=== PATIENT | female | born 1965 | race Hispanic/Latino ===

== ENCOUNTER 2017-09-23 01:57 | Emergency (ER) | payer OTHER ==
[2017-09-23 02:49] LABS: Absolute Lymphocytes (CBC) 3.2 K/uL (0.7-4.9); Absolute Monocytes 0.4 K/uL (0.1-1.3); Absolute Neutrophil 3.9 K/uL (1.8-8.0); Basophils % 1.1 % (0-1.3); Eosinophils % 2.3 % (0-4.4); Hematocrit 43.9 % (36.0-45.0); Lymphocytes % 41.3 % (15.3-44.8); MCH 29.8 pg (27.0-35.0); MCV 89.8 fL (80-100); MPV 10.4 fL (7.6-11.3); Monocytes % 5.1 % (3.3-12.3); RBC Red Blood Cell Count 4.89 M/uL (3.86-4.86)
[2017-09-23 02:54] LABS: Bicarbonate 26 mEq/L (21-31); Glucose Level 107 mg/dL (65-120); Lipase 32 U/L (22-51); Potassium 3.4 mEq/L (3.6-5.0); Sodium Level 136 mEq/L (135-145)
[2017-09-23 02:57] LABS: ALT/SGPT 12 IU/L (10-60); AST/SGOT 19 IU/L (10-42); Albumin 4.6 g/dL (3.2-5.5); Alkaline Phosphatase 58 IU/L (42-121); BUN Blood Urea Nitrogen 11 mg/dL (6-20); Bilirubin Total 0.7 mg/dL (0.3-1.2)
[2017-09-23 03:27] LABS: Barbiturates NEGATIVE; Benzodiazepines NEGATIVE; Cocaine NEGATIVE; METHAMPHETAM NEGATIVE; Opiates NEGATIVE; Phencyclidine NEGATIVE; THC Cannibis NEGATIVE
--- NOTE | 2017-09-23 04:15 | EDPHYS ---
Physician Documentation [facility] Name: Tejal Tabares Age: 52 yrs Sex: Female : 1965 Arrival Date: 09/23/2017 Time: 02:02 Bed 20 Private MD: ED Physician Carlos Castaneda HPI: 09/23 02:07 This 52 yrs old Female presents to ER via Unassigned with complaints of ps1 seizure. 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 EMS called and patient ps1 had stopped seizure like activity that was reported as generalized shaking and drooling per family member. EMS states that she appeared post ictal. No medications given. Hx of MS. Not taking medications. Is taking alternative medications, colloidal silver and stool softener. . 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 - Social history:: Smoking status: Patient/guardian denies using tobacco. Vital Signs: 02:19 BP 131 / 58; Pulse 93; Resp 20 S; Temp 98.8(O); Pulse Ox 100% on R/A; Weight 88.45 kg jd3 (R); Height 5 ft. 4 in. (162.56 cm) (R); Pain 0/10; 03:18 BP 186 / 87; Pulse 78; Resp 18 S; Pulse Ox 100% on R/A; Pain 0/10; jd3 03:34 BP 169 / 83; Pulse 89; Resp 18 S; Pulse Ox 100% on R/A; Pain 0/10; jd3 05:10 BP 173 / 91; Pulse 100; Resp 19 S; Pulse Ox 100% on R/A; Pain 0/10; jd3 06:08 BP 155 / 84; Pulse 78; Resp 18 S; Pulse Ox 98% on R/A; jd3 06:42 BP 153 / 79; Pulse 88; Resp 17 S; Pulse Ox 100% on R/A; jd3 07:30 BP 144 / 79; Pulse 68; Resp 16; Pulse Ox 100% on R/A; Pain 0/10; em 02:19 Body Mass Index 33.47 (88.45 kg, 162.56 cm) jd3 MDM: 02:23 Patient medically screened. ps1 09/23 02:09 Order name: UDS; Complete Time: 03:27 ps1 09/23 02:09 Order name: BNP; Complete Time: 03:03 ps1 09/23 02:09 Order name: CBC with Diff; Complete Time: 03:03 ps1 09/23 02:09 Order name: Lipase; Complete Time: 03:03 ps1 09/23 02:09 Order name: Magnesium; Complete Time: 03:03 ps1 09/23 02:09 Order name: Troponin (emerg Dept Use Only); Complete Time: 03:03 ps1 09/23 02:09 Order name: CT Head Brain wo Cont ps1 09/23 02:09 Order name: Lactate; Complete Time: 03:27 ps1 09/23 02:09 Order name: CMP; Complete Time: 03:03 ps1 09/23 02:14 Order name: Blood Culture Adult (2) ps1 09/23 02:18 Order name: CXR XRAY ps1 09/23 03:26 Order name: Urine Dipstick--Ancillary (enter results); Complete Time: 05:14 rg2 09/23 05:47 Order name: Urine Microscopic Only ps1 09/23 07:19 Order name: Urine Culture EDMS 09/23 02:09 Order name: EKG; Complete Time: 02:10 ps1 09/23 02:09 Order name: Cardiac monitoring; Complete Time: 02:21 ps1 09/23 02:09 Order name: EKG - Nurse/Tech; Complete Time: 03:04 ps1 09/23 02:09 Order name: IV Saline Lock; Complete Time: 03:04 ps1 09/23 02:09 Order name: Labs collected and sent; Complete Time: 03:04 ps1 09/23 02:09 Order name: NPO; Complete Time: 02:21 ps1 09/23 02:09 Order name: O2 Per Protocol; Complete Time: 02:21 ps1 09/23 02:09 Order name: O2 Sat Monitoring; Complete Time: 02:21 ps1 09/23 02:09 Order name: Urine Dipstick-Ancillary (obtain specimen); Complete Time: 03:04 ps1 09/23 02:10 Order name: Seizure Precautions; Complete Time: 02:21 ps1 Administered Medications: 05:20 Drug: Keppra 1500 mg Route: IV; Rate: bolus; Site: left antecubital; jd3 06:10 Follow up: Response: No adverse reaction; IV Status: Completed infusion jd3 Disposition: 09/23/17 07:19 Discharged to Home. Impression: Seizure like activity, UTI. - Condition is Stable. - Discharge Instructions: Seizure, Adult. - Prescriptions for Keppra 500 mg Oral Tablet - take 1 tablet by ORAL route every 12 hours; 20 tablet. Bactrim DS 800- 160 mg Oral Tablet - take 1 tablet by ORAL route every 12 hours for 3 days; 6 tablet. - Medication Reconciliation Form, Thank You Letter, Antibiotic Education, Prescription Opioid Use form. - Follow up: Carlos Marte MD; When: 2 - 3 days; Reason: Further diagnostic work-up, Recheck today's complaints, Re-evaluation by your physician. Follow up: Emergency Department; When: As needed; Reason: Worsening of condition. - Problem is new. - Symptoms are unchanged. Addendum: 09/29/2017 13:32 Co-signature as Attending Physician, Arthur Brooks MD I agree with the assessment and k dr plan of care. Signatures: Dispatcher [employer] EDIA Arthur Brooks MD MD [facility] Deep Oneal LVN LVN Forrest Logan RN RN jCarlos Nguyen MD MD ps1 Corrections: (The following items were deleted from the chart) 09/23 03:04 02:09 Urine Test ordered. ps1 jd3 07:18 04:15 09/23/2017 04:15 Discharged to Home. Impression: Acute Chron's Flare. Condition ps1 is Stable. Forms are Medication Reconciliation Form, Thank You Letter, Antibiotic Education, Prescription Opioid Use. Follow up: Jian Upton; When: 2 - 3 days; Reason: Recheck today's complaints, Continuance of care, Re-evaluation by your physician. Follow up: Emergency Department; When: As needed; Reason: Fever > 102 F, Worsening of condition. Problem is an acute exacerbation. Symptoms have worsened. ps1 07:24 07:19 09/23/2017 07:19 Discharged to Home. Impression: Seizure like activity. Condition ps1 is Stable. Forms are Medication Reconciliation Form, Thank You Letter, Antibiotic Education, Prescription Opioid Use. Follow up: Carlos Marte; When: 2 - 3 days; Reason: Further diagnostic work-up, Recheck today's complaints, Re-evaluation by your physician. Follow up: Emergency Department; When: As needed; Reason: Worsening of condition. Problem is new. Symptoms are unchanged. ps1 08:13 07:24 09/23/2017 07:19 Discharged to Home. Impression: Seizure like activity; UTI. em Condition is Stable. Discharge Instructions: Seizure, Adult. Prescriptions for Keppra 500 mg Oral Tablet - take 1 tablet by ORAL route every 12 hours; 20 tablet. and Forms are Medication Reconciliation Form, Thank You Letter, Antibiotic Education, Prescription Opioid Use. Follow up: Carlos Marte; When: 2 - 3 days; Reason: Further diagnostic work-up, Recheck today's complaints, Re-evaluation by your physician. Follow up: Emergency Department; When: As needed; Reason: Worsening of condition. Problem is new. Symptoms are unchanged. ps1
--- NOTE | 2017-09-23 04:15 | ER ---
Nurse's Notes [facility] Name: Tejal Tabares Age: 52 yrs Sex: Female : 1965 Arrival Date: 09/23/2017 Time: 02:02 Bed 20 Private MD: Diagnosis: Seizure like activity;UTI Presentation: 09/23 02:12 Presenting complaint: EMS states: "pt was post ictal when we arrived on scene, she is jd3 now opening her eyes with purposeful movement.". Transition of care: patient was not received from another setting of care. Onset of symptoms was September 23, 2017. Initial Sepsis Screen: Does the patient meet any 2 criteria? No. Patient's initial sepsis screen is negative. Does the patient have a suspected source of infection? No. Patient's initial sepsis screen is negative. Care prior to arrival: IV initiated. 20 GA, in the right forearm, Glucose check: 99. 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 - Social history:: Smoking status: Patient/guardian denies using tobacco. Screenin:24 Abuse screen: Denies threats or abuse. Nutritional screening: No deficits noted. jd3 Tuberculosis screening: No symptoms or risk factors identified. Fall Risk Secondary diagnosis (15 points) impaired mobility, Ambulatory Aid- None/Bed Rest/Nurse Assist (0 pts). Gait- Weak (10 pts.). Total Jackman Fall Scale indicates Low Risk Score (25-44 pts). Fall prevention measures have been instituted. Side Rails Up X 2 Placed close to Nursing Station Frequent Obs/Assesments occuring Family Present and informed to notify staff if they need to leave bedside. Assessment: 02:22 General: Appears uncomfortable, Behavior is calm, cooperative, appropriate for age. jd3 Pain: Denies pain. Neuro: Level of Consciousness is awake, alert, obeys commands, Oriented to person, place, time, situation, Appropriate for age pt reacts slow, family reports this is due to history of MS. Cardiovascular: Heart tones S1 S2 present Capillary refill < 3 seconds Patient's skin is warm and dry. Respiratory: Airway is patent Respiratory effort is even, unlabored, Respiratory pattern is regular, symmetrical, Breath sounds are clear bilaterally. GI: Abdomen is round Bowel sounds present X 4 quads. Abd is soft and non tender X 4 quads. : No signs and/or symptoms were reported regarding the genitourinary system. EENT: No signs and/or symptoms were reported regarding the EENT system. Derm: Skin is intact, Skin is dry, Skin is normal, Skin temperature is warm. Musculoskeletal: Circulation, motion, and sensation intact. Range of motion: intact in all extremities. 03:16 Reassessment: Patient appears in no apparent distress at this time. Patient and/or jd3 family updated on plan of care and expected duration. Pain level reassessed. Patient is alert, oriented x 3, equal unlabored respirations, skin warm/dry/pink. 03:35 Reassessment: Patient appears in no apparent distress at this time. Patient and/or jd3 family updated on plan of care and expected duration. Pain level reassessed. Patient is alert, oriented x 3, equal unlabored respirations, skin warm/dry/pink. 04:30 Reassessment: Patient appears in no apparent distress at this time. Patient and/or jd3 family updated on plan of care and expected duration. Pain level reassessed. Patient is alert, oriented x 3, equal unlabored respirations, skin warm/dry/pink. 05:10 Reassessment: Patient appears in no apparent distress at this time. Patient and/or jd3 family updated on plan of care and expected duration. Pain level reassessed. Patient is alert, oriented x 3, equal unlabored respirations, skin warm/dry/pink. 06:09 Reassessment: Patient appears in no apparent distress at this time. Patient and/or jd3 family updated on plan of care and expected duration. Pain level reassessed. Patient is alert, oriented x 3, equal unlabored respirations, skin warm/dry/pink. 06:42 Reassessment: Patient appears in no apparent distress at this time. Patient and/or jd3 family updated on plan of care and expected duration. Pain level reassessed. Patient is alert, oriented x 3, equal unlabored respirations, skin warm/dry/pink. 07:30 Reassessment: Patient appears in no apparent distress at this time. Patient and/or em family updated on plan of care and expected duration. Pain level reassessed. Patient is alert, oriented x 3, equal unlabored respirations, skin warm/dry/pink. awaiting U. micro results, pt is pending discharge after results Patient states symptoms have improved. Vital Signs: 02:19 BP 131 / 58; Pulse 93; Resp 20 S; Temp 98.8(O); Pulse Ox 100% on R/A; Weight 88.45 kg jd3 (R); Height 5 ft. 4 in. (162.56 cm) (R); Pain 0/10; 03:18 BP 186 / 87; Pulse 78; Resp 18 S; Pulse Ox 100% on R/A; Pain 0/10; jd3 03:34 BP 169 / 83; Pulse 89; Resp 18 S; Pulse Ox 100% on R/A; Pain 0/10; jd3 05:10 BP 173 / 91; Pulse 100; Resp 19 S; Pulse Ox 100% on R/A; Pain 0/10; jd3 06:08 BP 155 / 84; Pulse 78; Resp 18 S; Pulse Ox 98% on R/A; jd3 06:42 BP 153 / 79; Pulse 88; Resp 17 S; Pulse Ox 100% on R/A; jd3 07:30 BP 144 / 79; Pulse 68; Resp 16; Pulse Ox 100% on R/A; Pain 0/10; em 02:19 Body Mass Index 33.47 (88.45 kg, 162.56 cm) jd3 ED Course: 02:02 Patient arrived in ED. rg2 02:07 Carlos Castaneda MD is Attending Physician. ps1 02:12 Forrest Paul RN is Primary Nurse. jd3 02:14 Triage completed. jd3 02:20 Arm band placed on. jd3 02:23 Radiology exam delayed due to IV insertion attempt and/or patient not having eh appropriate IV at this time. 02:26 Patient has correct armband on for positive identification. Bed in low position. Call jd3 light in reach. Side rails up X2. Adult w/ patient. 02:30 Inserted saline lock: 20 gauge in left antecubital area, using aseptic technique. Blood jd3 collected. placed by Rosa Maria ORTIZ. 02:50 X-ray completed. Portable x-ray completed in exam room. Patient tolerated procedure kc2 well. 02:52 CXR XRAY In Process Unspecified. EDMS 03:12 CT Head Brain wo Cont In Process Unspecified. EDMS 03:14 CT completed. Patient tolerated procedure well. Patient moved to CT via stretcher. Patient moved back from CT. 04:14 Jian Upton MD is Referral Physician. ps1 07:18 Carlos Marte MD is Referral Physician. ps1 08:09 No provider procedures requiring assistance completed. IV discontinued, intact, em bleeding controlled, No redness/swelling at site. Pressure dressing applied. Administered Medications: 05:20 Drug: Keppra 1500 mg Route: IV; Rate: bolus; Site: left antecubital; jd3 06:10 Follow up: Response: No adverse reaction; IV Status: Completed infusion jd3 Outcome: 04:15 Discharge ordered by MD. ps1 07:19 Discharge ordered by MD. ps1 08:12 Discharged to home via wheelchair. em 08:12 Condition: good 08:12 Discharge instructions given to patient, Instructed on discharge instructions, follow up and referral plans. medication usage, Demonstrated understanding of instructions, follow-up care, medications, Prescriptions given X 2. 08:13 Patient left the ED. em Addendum: 09/28/2017 09:04 Addendum: Culture Results: Positive urine culture. Bacteria is resistant to, has i w intermediate sensitivity, or is not tested against prescribed antibiotics. Report given to ELISSA for further evaluation and then to online marketing strategist for follow up with patient. Phone call Attempt #1 pt asymptomatic for UTI symptoms. Signatures: Dispatcher [employer] EDNV Chris Mcnair rg2 Ryan Leahy Deep Oneal, VOLTMETER OPERATOR VOLTMETER OPERATOR em Amanda Aldridge, ANGEL RN iw Desirae Fitzgerald kc2 Forrest Paul RN RN Carlos Frye MD MD ps1 Corrections: (The following items were deleted from the chart) 09/23 02:21 02:12 Care prior to arrival: None. jd3 jd3 09/27 16:26 16:23 Addendum: Culture Results: Positive urine culture. No further action required. iw Bacteria sensitive to prescribed antibiotic. iw
[2017-09-23 04:41] LABS: Urine Blood TRACE (NEG); Urine Glucose NEGATIVE (NEG); Urine Protein 1+ (NEG)
[2017-09-23] MEDS ORDERED: NA CHLORIDE 0.9% 100 ML IV ONE (04:42)
[2017-09-23] MEDS ORDERED: LEVETIRACETAM 500 MG/5 ML VIAL IV ONE ×2 (04:42→04:52)
[2017-09-23 07:17] LABS: Urine Bacteria <20 /HPF (<20); Urine Culture Reflex Order REFLEXED; Urine RBC <5 /HPF (NONE SEEN)
[2017-09-23 08:17] VITALS: TEMP 98.8
[2017-09-23 08:22] VITALS: O2SAT 100
[2017-09-23 08:24] VITALS: BP 144/79
--- NOTE | 2017-09-23 10:25 | RAD REPORT ---
EXAM DESCRIPTION: CT - Head Brain Wo Cont - 09/23/2017 4:48 am CLINICAL HISTORY: Multiple sclerosis, altered consciousness. COMPARISON: Brain MR 06/25/2013 TECHNIQUE: All CT scans are performed using dose optimization technique as appropriate and may inclu de automated exposure control or mA/KV adjustment according to patient size. FINDINGS: No intracranial hemorrhage, hydrocephalus or extra-axial fluid collection.Moderate global brain atrophy noted.No areas of brain edema or evidence of midline shift. The paranasal sinuses and mastoids are clear. The calvarium is intact. IMPRESSION: No acute intracranial abnormality.
--- NOTE | 2017-09-23 11:25 | RAD REPORT ---
EXAM DESCRIPTION: RAD - Chest Single View - 09/23/2017 2:52 am CLINICAL HISTORY: Chest pain, seizure COMPARISON: None. FINDINGS: Portable technique limits examination quality. The lungs are grossly clear. The heart is normal in size. No displaced fractures. IMPRESSION: No acute intrathoracic process suspected.
--- NOTE | 2017-09-24 16:12 | EKG ---
Test Date: 2017-09-23 Test Time: 02:52:16 Hospital Social Worker: SITA MEASUREMENT RESULTS: Intervals: Rate: 86 SD: 142 QRSD: 76 QT: 366 QTc: 437 [place]: P: 35 SD: 142 QRS: 1 T: 21 INTERPRETIVE STATEMENTS: Normal sinus rhythm Normal ECG Compared to ECG 06/24/2013 18:01:32 No significant changes Electronically Signed On 09-24-17 16:12:14 CDT by Clyde Mirza
== END 2017-09-23 08:13 | disposition home or self-care (01) ==
LOC: ER 01:57
DX: N39.0 Urinary tract infection, site not specified (principal); G35 Multiple sclerosis
CPT/HCPCS: 36415; 70450; 71045; 80053; 80307; 81003; 81015; 83605; 83690; 83735; 83880; 84484; 85025; 87040; 87077; 87086; 87088; 87186; 93005; 96365; 99284; J1953